=== PATIENT | male | born 1960 | race Caucasian/White ===

== ENCOUNTER 2024-02-16 15:26 | Outpatient (AMB) | payer OTHER, SELFPAY ==
[2024-02-16 15:54] VITALS: BP 142/100; PULSE 74; O2SAT 97; BMI 34.7
--- NOTE | 2024-02-16 15:54 | MHC.PC.OV ---
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 [facility] Bilingual Receptionist Required: No Accompanied by: Self / Same As Patient Allergies Penicillins Allergy (Intermediate, Verified 02/16/24 16:39) Rash Medication List - Last Reconciled 02/16/24 by Isaak Marrero MD cholecalciferol (vitamin D3) 50 mcg PO DAILY fluticasone propionate 50 mcg/actuation 1 spray intranasal DAILY mecobalamin (vitamin B12) 1,000 mcg PO DAILY naltrexone 50 mg PO DAILY sertraline 50 mg PO DAILY Tobacco use date assessed: 02/16/24 Dental Screening Dental Screen Date: 02/16/24 Did you have a dental visit in the last 12 months?: Yes Did you have a dental problem in the last 6 months where you did not have access to dental care?: No Was dental information given to patient?: Patient has dentist 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 HPI Details Patient comes in today for his annual physical examination and to establish care - is a new patient to the practice States that he quit drinking and using drugs 2 years ago, with the help of a program at [facility] in [place] that is supposedly for people with ADHD (?) States that he is currently on disability due to his lumbar DDD and also from mental health issues - states that he has been seeing a therapist a couple of times a week for a while now He is currently on Sertraline but is reportedly being switched out to some other unrecalled med by his psychiatric prescriber Recalls that he was also started on Bupropion in conjunction with his Naltrexone a while ago but it did not help him at all Relates that he keeps himself busy and involved in a lot of programs and activities like dragonboat racing/rowing, qi gong, yoga and other programs for strength training and cardio exercises to help cope with his depression He feels depressed partly due to his situation with his daughter - states that he has no relationship with his daughter and it has been over 4 yrs now since he last had a conversation with her States that this is mostly her choice and that he has to learn to live with this - he has reportedly been to anger management twice now States that he has gained a lot of weight recently - thinks that this is mostly from eating a lot since he quit drinking and using drugs - states that he generally eats healthy and that his problem is more of portion control and he is currently looking for some help to cut down on his eating and to help him lose some weight States that he is currently also on 3 different eye drops for some eye condition He is currently also on Dulcolax for constipation and is on Lisinopril (unrecalled dose) for his blood pressure States that he just had his PE done at [facility] last month, and he had some labs done prior to his physical exam - was reportedly told that his labs were okay Recalls that his FBS was around 105 mg/dl but his doctor at the [facility] did not seem to be concerned about this States that he is also scheduled for his repeat colonsocopy at [facility] in a couple of weeks on 02/29/24 He currently denies any headaches or dizziness Denies any chest pains, no SOB No nausea/vomiting, no abdominal pain Still has recurrent constipation as mentioned above He denies any acute urinary symptoms [facility] Medical History (Updated 02/17/24 @ 02:03 by Isaak Marrero MD) Lumbar degenerative disc disease Vitamin D deficiency Constipation Obesity (BMI 30-39.9) Essential hypertension History of alcohol abuse Depression Surgical History H/O inguinal hernia repair Family History Father Emphysema of lung Mother Glaucoma Hypertension Borderline type 2 diabetes mellitus CHF (congestive heart failure), Onset Age: 89 Colon cancer Social History Housing: Condominium Alcohol intake: former Year quit: 2021 Comment: two years ago-on medication Patient Tobacco Use Status: Former Tobacco user Tobacco use type: Cigarette e-Cigarette/Vaping Use: Never Used service: Yes ([place] [employer]) Current occupational status: retired and disabled Cognitive needs: No Hearing needs: Yes (tinnitus/hearing loss) Vision needs: Yes (Right eye glaucoma-being treated with three eye drops) Questionnaire PHQ-9 Over the last 2 weeks, how often have you been bothered by any of the following problems? 1. Little interest or pleasure in doing things: several days 2. Feeling down, depressed, or hopeless: several days 3. Trouble falling or staying asleep, or sleeping too much: several days 4. Feeling tired or having little energy: several days 5. Poor appetite or overeating: nearly every day 6. Feeling bad about yourself - or that you are a failure or have let yourself or your family down: several days 7. Trouble concentrating on things, such as reading the newspaper or watching television: several days 8. Moving or speaking so slowly that other people could have noticed. Or the opposite - being so fidgety or restless that you have been moving around a lot more than usual: several days 9. Thoughts that you would be better off or of hurting yourself in some way: not at all Total score: 10 Depression Screening Interpretation: Positive Depression Screening Follow-up: Existing condition and In treatment Depression Screening Done: Yes 03134 - PHQ-9 Billing: Yes Source: Developed by Drs. Jeffrey Barbosa, Marisela Nova, Alcon Woo and colleagues, with an educational myrna from [employer]. Thrive Questionnaire Date Thrive assessed: 02/16/24 I am a: Patient What is your living situation today?: I have a steady place to live Within the past 12 months, did the food you bought not last and you didn't have the money to get more?: Never true Within the past 12 months, did you worry whether your food would run out before you got money to buy more?: Never true Do you have trouble paying for medicines?: No Do you have trouble getting transportation to medical appointments?: No Do you have trouble paying your heating and electricity bill?: No Do you have trouble taking care of your child, family member or friend?: No Do you have trouble with day-to-day activities such as bathing, preparing meals, shopping, managing finances, etc.?: No Are you currently unemployed and looking for a job?: No Are you interested in more education?: No Please select the resources that you would like help with: Paying for medicine and Care for elder or disabled Currently or been in a relationship where the following occur: No concerns reported THRIVE Score: 0 AUDIT C Alcohol Use Questionnaire (AUDIT-C) 1. How often do you have a drink containing alcohol?: Never 2. How many drinks containing alcohol do you have on a typical day when you are drinking?: 3 or 4 3. How often do you have six or more drinks on one occasion?: Never Total Score: 1 Score Reviewed/Action Taken: Yes VINI-7 AMB Questionnaire VINI-7 Date VINI - 7 assessed: 02/16/24 Feeling nervous, anxious, or on edge: 1 = Several days Not being able to stop or control worryin = Several days Worrying too much about different things: 1 = Several days Trouble relaxin = Several days Being so restless that it is hard to sit still: 1 = Several days Becoming easily annoyed or irritable: 1 = Several days Feeling afraid as if something awful might happen: 0 = Not at all Total VINI-7 score (0-4 normal; 5-9 mild; 10-14 moderate; 15-21 severe): 6 Source: Developed by Drs. Jeffrey Barbosa, Marisela Nova, Alcon Woo and colleagues, with an educational myrna from [employer]. VINI-7 Assessment Billing VINI-7 Assessment Tool: VINI-7 Assessment 19637 Review of Systems Const Denies chills, Denies fatigue, Denies fever(s), Denies headache(s), Denies malaise, Denies weakness and Reports weight gain Eyes Denies blurry vision, Denies change in vision, Denies irritation and Denies itchy eyes ENT Denies dysphagia, Denies dizziness, Denies otalgia, Denies headache(s), Denies nasal congestion, Denies neck pain, Denies odynophagia and Denies sore throat Card Denies chest pain, Denies rapid heart rate, Denies irregular heart rhythm, Denies palpitations and Denies dyspnea Resp Denies chest congestion, Denies cough, Denies dyspnea and Denies wheezing GI Denies abdominal pain, Denies bloating, Reports constipation, Denies dysphagia, Denies heartburn, Denies diarrhea, Denies nausea, Denies odynophagia and Denies vomiting Denies hematuria, Denies difficulty urinating, Denies dysuria, Denies urinary frequency and Denies urinary urgency Musc Reports back pain (over the lower back - chronic), Denies arthralgias, Denies joint swelling, Denies muscle weakness and Denies neck pain Skin/Breast Denies change in pigmentation, Denies lesions, Denies rash and Denies unusual bruising Neuro Denies dizziness, Denies headache(s), Denies paresthesias and Denies weakness Psych Denies anxiety and Reports depression Endo Denies fatigue and Denies palpitations Aller/Immun Denies itchy eyes and Denies wheezing Physical exam (Primary Care) Vital Signs: Last Vital Signs Pulse 74 02/16/24 15:54 BP 142/100 H 02/16/24 15:54 Pulse Ox 97 02/16/24 15:54 Oxygen Delivery Method Room Air 02/16/24 15:54 BMI result Body Mass Index 34.7 Tobacco/Smoking Status: Tobacco use Status Tobacco use date assessed 02/16/24 02/16/24 16:17 Patient Tobacco Use Status Former Tobacco user (quit 40 02/16/24 16:17 years ago) Tobacco use type Cigarette 02/16/24 16:17 e-Cigarette/Vaping Use Never Used 02/16/24 16:17 PHQ-9: PHQ-9 Score PHQ-9: Total score 10 02/16/24 16:55 Depression Screening Interpretation: Positive Depression Screening Follow-up: Existing condition and In treatment Thrive Assessment: Date of Thrive Assessment Date Thrive assessed 02/16/24 02/16/24 16:17 Currently or been in a relationship where the following occur: No concerns reported Const General: no acute distress, alert and awake Orientation/consciousness: patient oriented x3 HENMT Head: Yes normocephalic and Yes atraumatic Ears: external ears normal, TM's normal bilaterally and EAC's normal General nose exam: No nasal discharge present Face and sinus: Yes normal facial exam and Yes sinuses nontender Teeth and gingiva: dentition normal Throat: Yes posterior oropharynx normal and Yes tonsils normal (no TP congestion) Eyes Eyelids: Yes eyelids normal Conjunctivae: conjunctivae normal Pupils: Equal, round and reactive pupils present EOM: EOMs intact bilaterally Neck Neck: Yes no lymphadenopathy and Yes supple Thyroid: Thyroid normal Resp Auscultation: clear to auscultation bilaterally, no rales and no wheezes Cardio Rate: regular rate Rhythm: regular rhythm Heart sounds: no murmurs GI Palpation (GI): Soft to palpation, nontender and No hepatosplenomegaly present Auscultation: normal bowel sounds General: Yes no CVA tenderness Back/Spine/Pelvis Back: no CVA tenderness Thoracic/Lumbar Spine: lumbar spinal tenderness Skin Lesions: no lesions Rashes: no rashes Neuro General: patient oriented x3, moves all extremities, no focal motor deficits and CN's II-XI intact bilaterally Cranial nerves: Yes Equal, round and reactive pupils present Cognition (Neuro): normal cognition Gait exam (Neuro): Normal gait present Extrem General: Yes no clubbing, cyanosis or edema Assessment and Plan Assessment & Plan (1) Annual physical exam: Code(s): Z00.00 - Encounter for general adult medical examination without abnormal findings Plan: Patient states that he just had some labs done [facility] and had [facility] physical [facility] about a month ago - will try to request for copies of these sent over for review Advised that we will just order whatever other labs are necessary to complete his physical exam and evaluation today once we have received copies of his recent labs and reviewed them He is also reportedly scheduled for his repeat colonoscopy at [facility] in a couple of weeks on 02/29/24 (2) Essential hypertension: Code(s): I10 - Essential (primary) hypertension Plan: Discussed low sodium diet - goal is systolic BP of at least 120 to 130 mm or less Continue Lisinopril - patient is unable to recall his current dosage (3) Constipation: Code(s): K59.00 - Constipation, unspecified Qualifiers: Constipation type: unspecified constipation type Qualified Code(s): K59.00 - Constipation, unspecified Plan: Advised that this is likely partially due to his Naltrexone Encouraged increased oral fluids and dietary fiber Continue current stool softeners - thinks that he is on Dulcolax (4) Vitamin D deficiency: Code(s): E55.9 - Vitamin D deficiency, unspecified Plan: Continue Vitamin D3 2000 units QD (5) Lumbar degenerative disc disease: Code(s): M51.36 - Other intervertebral disc degeneration, lumbar region Plan: Patient states that he is on long-term disability because of this issue Discussed activity and weight-lifting restrictions to avoid aggravating his low back pain (6) History of alcohol abuse: Code(s): F10.11 - Alcohol abuse, in remission Plan: Continue Naltrexone 50 mg QD and Vitamin B12 1000 mcg QD (7) Depression: Code(s): F32.A - Depression, unspecified Qualifiers: Depression Type: major depressive disorder Major depression recurrence: recurrent Active/Remission status: currently active Major depression episode severity: unspecified Qualified Code(s): F33.9 - Major depressive disorder, recurrent, unspecified Plan: Continue Sertraline (patient also cannot recall his dosage) but states that he is currently being weaned off this and started on another medication by his psychiatrist Follow up with psychiatry at the [facility] as scheduled (8) Obesity (BMI 30-39.9): Code(s): E66.9 - Obesity, unspecified Plan: Discussed diet/exercise as tolerated/lose weight Have advised patient that we will try to request for copies of his recent labs and medical records for review first and any Rx to help him lose weight and curb his appetite will be appropriately prescribed once we have have a chance to review his records Coding Level of Care Code New Pt Prev Care 40-64y([id number]) Diagnoses Annual physical exam Z00.00 Essential hypertension I10 Constipation, unspecified constipation type K59.00 Constipation type: unspecified constipation type Vitamin D deficiency E55.9 Lumbar degenerative disc disease M51.36 History of alcohol abuse F10.11 Episode of recurrent major depressive disorder, unspecified depression episode severity F33.9 Depression Type: major depressive disorder Major depression recurrence: recurrent Active/Remission status: currently active Major depression episode severity: unspecified Obesity (BMI 30-39.9) E66.9 Additional Codes VINI-7 Assessment Billing - VINI-7 Assessment Tool: VINI-7 Assessment 31201 ([id number])
== END 2024-02-16 17:01 | disposition home or self-care (01) ==
PROVIDERS: PCP Internal Medicine; Visit Provider Internal Medicine
DX: Z00.00 Encounter for general adult medical examination without abnormal findings (principal); I10 Essential (primary) hypertension; K59.00 Constipation, unspecified; F33.9 Major depressive disorder, recurrent, unspecified; E55.9 Vitamin D deficiency, unspecified; M51.36 Other intervertebral disc degeneration, lumbar region; F10.11 Alcohol abuse, in remission
CPT/HCPCS: 99386

== ENCOUNTER 2024-06-28 16:04 | Outpatient (AMB) | payer OTHER, SELFPAY ==
[2024-06-28 16:10] VITALS: BP 132/84; PULSE 66; O2SAT 95; BMI 36.5
--- NOTE | 2024-06-28 16:10 | A.OFFPC_ITS ---
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 Accompanied by: Self / Same As Patient Allergies Penicillins Allergy (Intermediate, Verified 06/28/24 16:34) Rash Medication List - Last Reconciled 06/28/24 by Isaak Marrero MD bisacodyl (Laxative (bisacodyl)) 5 mg PO BID bupropion HCl XL 150 mg PO QAM cholecalciferol (vitamin D3) 50 mcg PO DAILY clonidine HCl 0.2 mg PO BEDTIME cyanocobalamin (vitamin B-12) 500 mcg PO DAILY diclofenac sodium 1% (Arthritis Pain (diclofenac)) 2 grams topical QID docusate sodium 100 mg PO DAILY fluticasone propionate 50 mcg/actuation 2 sprays intranasal DAILY latanoprost 0.005% 1 drp ophthalmic (eye) DAILY lidocaine 4% 1 appl topical TID lidocaine 5% 1 patch topical DAILY lisinopril 5 mg PO DAILY mecobalamin (vitamin B12) 1,000 mcg PO DAILY methylphenidate HCl ER 10 mg PO QAM naltrexone 50 mg PO DAILY prazosin 1 mg PO BEDTIME propranolol 10 mg PO BID sodium chloride 0.65% (Nasal [place] (sodium chloride)) 1 spray intranasal BID PRN vortioxetine 10 mg PO DAILY zinc oxide 16% 1 appl topical BID-QID PRN Tobacco use date assessed: 06/28/24 Dental Screening Dental Screen Date: 06/28/24 Did you have a dental visit in the last 12 months?: Yes Did you have a dental problem in the last 6 months where you did not have access to dental care?: No Was dental information given to patient?: Patient has dentist HPI 4 months HPI Details Patient comes in today for his follow up visit States that he has gained a lot of weight (over 12 pounds) since his last visit Patient states that he used to weigh around 190 pounds a couple of years ago but ever since he quit drinking in March 2022, he has gained a lot of weight and currently sits at around 170 pounds - states that he has been abstinent since completing a two-week PTSD program at [facility] in [place] in March 2022 He admits to having a problem controlling his eating habits as he tends to keep eating even after he is full and is looking for help robert villeda this States that he stays active and participates regularly in physical activities everyday like yoga, strength training, cardiovascular exercises like walking, Qigong, water aerobics, and he also participates in [facility], but these efforts have not helped him at all in losing any significant amount of weight States that he has previously tried Bupropion and a higher dose of Naltrexone than what he is currently on without any success Patient states that he feels okay He denies any headaches or dizziness Denies any chest pains, no SOB No nausea/vomiting, no abdominal pain No change in bowel habits noted States that he had some labs done at the [facility] recently and will try to get a copy of those sent over to us for his file [facility] Medical History Anxiety Allergic rhinitis Lumbar degenerative disc disease Vitamin D deficiency Constipation Obesity (BMI 30-39.9) Essential hypertension History of alcohol abuse Depression Surgical History H/O inguinal hernia repair Family History Father Emphysema of lung Mother Glaucoma Hypertension Borderline type 2 diabetes mellitus CHF (congestive heart failure), Onset Age: 89 Colon cancer Social [facility] Alcohol intake: former Year quit: 2021 Comment: two years ago-on medication Patient Tobacco Use Status: Former Tobacco user Tobacco use type: Cigarette e-Cigarette/Vaping Use: Never Used service: Yes ([employer] and [employer]) Current occupational status: retired and disabled Cognitive needs: No Hearing needs: Yes (tinnitus/hearing loss) Vision needs: Yes (Right eye glaucoma-being treated with three eye drops) Questionnaire PHQ-9 Over the last 2 weeks, how often have you been bothered by any of the following problems? 1. Little interest or pleasure in doing things: several days 2. Feeling down, depressed, or hopeless: several days 3. Trouble falling or staying asleep, or sleeping too much: several days 4. Feeling tired or having little energy: several days 5. Poor appetite or overeating: nearly every day 6. Feeling bad about yourself - or that you are a failure or have let yourself or your family down: several days 7. Trouble concentrating on things, such as reading the newspaper or watching television: several days 8. Moving or speaking so slowly that other people could have noticed. Or the opposite - being so fidgety or restless that you have been moving around a lot more than usual: several days 9. Thoughts that you would be better off or of hurting yourself in some way: not at all Total score: 10 Depression Screening Interpretation: Positive Depression Screening Follow-up: Existing condition and In treatment Depression Screening Done: Yes 28563 - PHQ-9 Billing: Yes Source: Developed by Drs. Jeffrey Barbosa, Marisela Nova, Alcon Woo and colleagues, with an educational myrna from [employer]. Thrive Questionnaire Date Thrive assessed: 06/28/24 I am a: Patient What is your living situation today?: I have a steady place to live Within the past 12 months, did the food you bought not last and you didn't have the money to get more?: Never true Within the past 12 months, did you worry whether your food would run out before you got money to buy more?: Never true Do you have trouble paying for medicines?: No Do you have trouble getting transportation to medical appointments?: No Do you have trouble paying your heating and electricity bill?: No Do you have trouble taking care of your child, family member or friend?: No Do you have trouble with day-to-day activities such as bathing, preparing meals, shopping, managing finances, etc.?: No Are you currently unemployed and looking for a job?: No Are you interested in more education?: No Please select the resources that you would like help with: None Currently or been in a relationship where the following occur: No concerns reported THRIVE Score: 0 AUDIT C Alcohol Use Questionnaire (AUDIT-C) 1. How often do you have a drink containing alcohol?: Never 2. How many drinks containing alcohol do you have on a typical day when you are drinking?: 3 or 4 3. How often do you have six or more drinks on one occasion?: Never Total Score: 1 Score Reviewed/Action Taken: Yes VINI-7 AMB Questionnaire VINI-7 Date VINI - 7 assessed: 06/28/24 Feeling nervous, anxious, or on edge: 1 = Several days Not being able to stop or control worryin = Several days Worrying too much about different things: 1 = Several days Trouble relaxin = Several days Being so restless that it is hard to sit still: 1 = Several days Becoming easily annoyed or irritable: 1 = Several days Feeling afraid as if something awful might happen: 0 = Not at all Total VINI-7 score (0-4 normal; 5-9 mild; 10-14 moderate; 15-21 severe): 6 Source: Developed by Drs. Jeffrey Barbosa, Marisela Nova, Alcon Woo and colleagues, with an educational myrna from [employer]. VINI-7 Assessment Billing VINI-7 Assessment Tool: VINI-7 Assessment 68188 Review of Systems Const Denies chills, Denies fatigue, Denies fever(s), Denies headache(s) and Reports weight gain ENT Denies dysphagia, Denies dizziness, Denies otalgia, Denies headache(s), Denies neck pain, Denies odynophagia and Denies sore throat Card Denies chest pain, Denies irregular heart rhythm, Denies palpitations and Denies dyspnea Resp Denies chest congestion, Denies cough, Denies dyspnea and Denies wheezing GI Denies abdominal pain, Reports constipation, Denies dysphagia, Denies heartburn, Denies diarrhea, Denies nausea, Denies odynophagia and Denies vomiting Denies difficulty urinating, Denies dysuria and Denies urinary frequency Musc Reports back pain (over the lower back - chronic), Denies arthralgias and Denies neck pain Skin/Breast Denies rash Neuro Denies dizziness, Denies headache(s) and Denies paresthesias Psych Denies anxiety and Reports depression Endo Denies fatigue and Denies palpitations Aller/Immun Denies wheezing Physical exam (Primary Care) Vital Signs: Last Vital Signs Pulse 66 06/28/24 16:10 BP 132/84 06/28/24 16:10 Pulse Ox 95 06/28/24 16:10 Oxygen Delivery Method Room Air 06/28/24 16:10 BMI result Body Mass Index 36.5 Tobacco/Smoking Status: Tobacco use Status Tobacco use date assessed 06/28/24 06/28/24 16:12 Patient Tobacco Use Status Former Tobacco user 06/28/24 16:12 Tobacco use type Cigarette 06/28/24 16:12 e-Cigarette/Vaping Use Never Used 06/28/24 16:12 PHQ-9: PHQ-9 Score PHQ-9: Total score 10 06/29/24 02:01 Depression Screening Interpretation: Positive Depression Screening Follow-up: Existing condition and In treatment Thrive Assessment: Date of Thrive Assessment Date Thrive assessed 06/28/24 06/28/24 16:12 Currently or been in a relationship where the following occur: No concerns reported Const General: no acute distress and alert HENMT Ears: TM's normal bilaterally and EAC's normal Throat: Yes posterior oropharynx normal and Yes tonsils normal (no TP congestion) Neck Neck: Yes no lymphadenopathy and Yes supple Thyroid: Thyroid normal Resp Auscultation: clear to auscultation bilaterally, no rales and no wheezes Cardio Rate: regular rate Rhythm: regular rhythm Heart sounds: no murmurs GI Palpation (GI): Soft to palpation and nontender Auscultation: normal bowel sounds General: Yes no CVA tenderness Back/Spine/Pelvis Back: no CVA tenderness Thoracic/Lumbar Spine: lumbar spinal tenderness Skin Rashes: no rashes Extrem General: Yes no clubbing, cyanosis or edema Coding Level of Care Code Est Pt Level 4 (24110) Diagnoses Essential hypertension I10 Constipation, unspecified constipation type K59.00 Constipation type: unspecified constipation type Vitamin D deficiency E55.9 Allergic rhinitis, unspecified seasonality, unspecified trigger J30.9 Allergic rhinitis trigger: unspecified Allergic rhinitis seasonality: unspecified Degeneration of intervertebral disc of lumbar region with discogenic back pain M51.360 Disc-related pain type: discogenic back pain only Glaucoma, unspecified glaucoma type, unspecified laterality H40.9 Glaucoma type: unspecified Laterality: unspecified laterality History of alcohol abuse F10.11 Attention deficit disorder, unspecified type F98.8 Attention deficit type: unspecified type Excessive eating R63.2 Anxiety F41.9 Episode of recurrent major depressive disorder, unspecified depression episode severity F33.9 Depression Type: major depressive disorder Major depression recurrence: recurrent Active/Remission status: currently active Major depression episode severity: unspecified Obesity (BMI 30-39.9) E66.9 Additional Codes VINI-7 Assessment Billing - VINI-7 Assessment Tool: VINI-7 Assessment 88049 ([id number]) PHQ-9 - 60113 - PHQ-9 Billing: Yes ([id number]) Assessment & Plan Assessment & Plan (1) Essential hypertension: Code(s): I10 - Essential (primary) hypertension Category: Medical Plan: Reinforced low sodium diet - goal is systolic BP of at least 120 to 130 mm or less Continue Lisinopril 5 mg QD (2) Constipation: Code(s): K59.00 - Constipation, unspecified Category: Medical Qualifiers: Constipation type: unspecified constipation type Qualified Code(s): K59.00 - Constipation, unspecified Plan: Have advised patient again that this is likely partially due to his Naltrexone R x He is encouraged again on increased oral fluids and dietary fiber Continue current stool softeners - he is on Bisacodyl 5 mg BID and Docusate 100 mg QD (3) Vitamin D deficiency: Code(s): E55.9 - Vitamin D deficiency, unspecified Category: Medical Plan: Continue Vitamin D3 2000 units QD (4) Allergic rhinitis: Code(s): J30.9 - Allergic rhinitis, unspecified Category: Medical Qualifiers: Allergic rhinitis trigger: unspecified Allergic rhinitis seasonality: unspecified Qualified Code(s): J30.9 - Allergic rhinitis, unspecified Plan: Continue Fluticasone 50 mcg nasal spray QD PRN (5) Lumbar degenerative disc disease: Code(s): M51.36 - Other intervertebral disc degeneration, lumbar region Category: Medical Qualifiers: Disc-related pain type: discogenic back pain only Qualified Code(s): M51.360 - Other intervertebral disc degeneration, lumbar region with discogenic back pain only Plan: Patient states that he is on long-term disability because of this issue Reinforced activity and weight-lifting restrictions to avoid aggravating his lower back He uses Lidocaine 5% patches over his lower back QD PRN for symptomatic relief (6) Glaucoma: Code(s): H40.9 - Unspecified glaucoma Category: Medical Qualifiers: Glaucoma type: unspecified Laterality: unspecified laterality Qualified Code(s): H40.9 - Unspecified glaucoma Plan: Continue Latanoprost 0.005% 1 drop to affected eye QD Follow up with ophthalmology as scheduled (7) History of alcohol abuse: Comment: he has been abstinent since completing a two-week PTSD program at [facility] in [place] in March 2022 Code(s): F10.11 - Alcohol abuse, in remission Category: Medical Plan: Patient states that he has been abstinent since completing a two-week PTSD program at [facility] in [place] in March 2022 Continue Naltrexone 50 mg QD and Vitamin B12 1000 mcg QD (8) Attention deficit disorder: Code(s): F98.8 - Other specified behavioral and emotional disorders with onset usually occurring in childhood and adolescence Category: Medical Qualifiers: Attention deficit type: unspecified type Qualified Code(s): F98.8 - Other specified behavioral and emotional disorders with onset usually occurring in childhood and adolescence Plan: Continue Methylphenidate ER 10 mg Q AM Follow up with psychiatry as scheduled (9) Excessive eating: Code(s): R63.2 - Polyphagia Category: Medical Plan: This is likely a compensatory mechanism from his quitting smoking a couple of years ago and also partially related to his mood disorder and we can hopefully address this better both his better control of his depression as well as appropriate Rx to help curb his excessive eating habits eventually (10) Anxiety: Code(s): F41.9 - Anxiety disorder, unspecified Category: Medical Plan: Continue Propranolol 10 mg BID and Clonidine 0.2 mg Q HS [facility] ([facility]) Depression: Code(s): F32.A - Depression, unspecified Category: Medical Qualifiers: Depression Type: major depressive disorder Major depression recurrence: recurrent Active/Remission status: currently active Major depression episode severity: unspecified Qualified Code(s): F33.9 - Major depressive disorder, recurrent, unspecified Plan: Continue Vortioxetine 10 mg QD, Bupropion XL 150 mg Q AM and Prazosin 1 mg Q HS Follow up [facility] as [facility] (12) Obesity (BMI 30-39.9): Code(s): E66.9 - Obesity, unspecified Category: Medical Plan: Reinforced diet/exercise as tolerated/lose weight Have advised patient to try getting us a copy of his most recent lab results and if his labs are okay once we have a chance to review them, we can then decide on what Rx we can start him on appropriately to help him lose weight and curb his appetite Plan Follow up in 4 months
== END 2024-06-28 16:46 | disposition home or self-care (01) ==
PROVIDERS: PCP Internal Medicine; Visit Provider Internal Medicine
DX: I10 Essential (primary) hypertension (principal); F33.9 Major depressive disorder, recurrent, unspecified; E66.9 Obesity, unspecified; Z68.36 Body mass index [BMI] 36.0-36.9, adult; K59.00 Constipation, unspecified; E55.9 Vitamin D deficiency, unspecified; J30.9 Allergic rhinitis, unspecified; M51.360 Other intervertebral disc degeneration, lumbar region with discogenic back pain only; H40.9 Unspecified glaucoma; F10.11 Alcohol abuse, in remission; F98.8 Other specified behavioral and emotional disorders with onset usually occurring in childhood and adolescence; R63.2 Polyphagia

== ENCOUNTER → 2024-06-28 16:04 | Outpatient (BNVA) | payer OTHER, SELFPAY | PROVIDERS: PCP Internal Medicine; Visit Provider Internal Medicine | DX: I10 Essential (primary) hypertension (principal); K59.00 Constipation, unspecified; E55.9 Vitamin D deficiency, unspecified; J30.9 Allergic rhinitis, unspecified; M51.360 Other intervertebral disc degeneration, lumbar region with discogenic back pain only; H40.9 Unspecified glaucoma; F10.11 Alcohol abuse, in remission; F98.8 Other specified behavioral and emotional disorders with onset usually occurring in childhood and adolescence; R63.2 Polyphagia; F41.9 Anxiety disorder, unspecified; E66.9 Obesity, unspecified; F33.9 Major depressive disorder, recurrent, unspecified; Z68.36 Body mass index [BMI] 36.0-36.9, adult | CPT/HCPCS: 96127; 99212 ==

== ENCOUNTER 2024-10-08 14:19 | Outpatient (AMB) | payer OTHER, SELFPAY ==
[2024-10-08 14:21] VITALS: BP 136/82; PULSE 78; O2SAT 97; BMI 34.4
--- NOTE | 2024-10-08 14:21 | MHC.PC.OV ---
Vital Signs 10/08/24 14:21 Height 6 ft Weight 253 lb 6 oz BMI 34.4 BP 136/82 Blood Pressure Location Lt brachial Position Sitting Pulse 78 Pulse Source Pulse Oximeter Pulse Oximetry (%) 97 Oxygen Delivery Method Room Air Intake Visit Reasons: 4 months follow up Medical Claims Manager Required: No Accompanied by: Self / Same As Patient Allergies Penicillins Allergy (Intermediate, Verified 10/08/24 14:43) Rash Medication List - Last Reconciled 10/08/24 by Isaak Marrero MD bisacodyl (Laxative (bisacodyl)) 5 mg PO BID bupropion HCl XL 150 mg PO QAM cholecalciferol (vitamin D3) 50 mcg PO DAILY clonidine HCl 0.2 mg PO BEDTIME cyanocobalamin (vitamin B-12) 500 mcg PO DAILY diclofenac sodium 1% (Arthritis Pain (diclofenac)) 2 grams topical QID docusate sodium 100 mg PO DAILY fluticasone propionate 50 mcg/actuation 2 sprays intranasal DAILY latanoprost 0.005% 1 drp ophthalmic (eye) DAILY lidocaine 4% 1 appl topical TID lidocaine 5% 1 patch topical DAILY lisinopril 5 mg PO DAILY mecobalamin (vitamin B12) 1,000 mcg PO DAILY methylphenidate HCl ER 10 mg PO QAM naltrexone 50 mg PO DAILY phentermine 37.5 mg PO DAILY prazosin 1 mg PO BEDTIME propranolol 10 mg PO BID semaglutide (weight loss) (Wegovy) 0.25 mg (0.5 mL) subcut QWEEK 4 weeks sodium chloride 0.65% (Nasal Creole (sodium chloride)) 1 spray intranasal BID PRN vortioxetine 10 mg PO DAILY zinc oxide 16% 1 appl topical BID-QID PRN Tobacco use date assessed: 10/08/24 Dental Screening Dental Screen Date: 10/08/24 Did you have a dental visit in the last 12 months?: Yes Did you have a dental problem in the last 6 months where you did not have access to dental care?: No Was dental information given to patient?: Patient has dentist HPI 4 months follow up HPI Details Patient comes in today for his follow up visit States that he is happy at being able to lose over 15 pounds since he was started on oral Phentermine a few weeks ago States that he has also been undergoing hypnosis every night to help with his weight loss and has an upcoming appointment with a network technical analyst next week on 10/16/2024 for further advice and recommendations Patient states that he feels okay overall He denies any headaches or dizziness Denies any chest pains, no SOB No nausea/vomiting, no abdominal pain No change in bowel habits noted He was not able to get his follow up labs done prior to his appointment today [facility] Medical History Anxiety Allergic rhinitis Lumbar degenerative disc disease Vitamin D deficiency Constipation Obesity (BMI 30-39.9) Essential hypertension History of alcohol abuse Depression Surgical History H/O inguinal hernia repair Family History Father Emphysema of lung Mother Glaucoma Hypertension Borderline type 2 diabetes mellitus CHF (congestive heart failure), Onset Age: 89 Colon cancer Social History [facility] Alcohol intake: former Year quit: 2021 Comment: two years ago-on medication Patient Tobacco Use Status: Former Tobacco user Tobacco use type: Cigarette e-Cigarette/Vaping Use: Never 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 1. Little interest or pleasure in doing things: several days 2. Feeling down, depressed, or hopeless: several days 3. Trouble falling or staying asleep, or sleeping too much: several days 4. Feeling tired or having little energy: several days 5. Poor appetite or overeating: nearly every day 6. Feeling bad about yourself - or that you are a failure or have let yourself or your family down: several days 7. Trouble concentrating on things, such as reading the newspaper or watching television: several days 8. Moving or speaking so slowly that other people could have noticed. Or the opposite - being so fidgety or restless that you have been moving around a lot more than usual: several days 9. Thoughts that you would be better off or of hurting yourself in some way: not at all Total score: 10 Depression Screening Interpretation: Positive Depression Screening Follow-up: Existing condition and In treatment Depression Screening Done: Yes 74313 - PHQ-9 Billing: Yes Source: Developed by Drs. Jeffrey Barbosa, Marisela Nova, Alcon Woo and colleagues, with an educational myrna from [employer]. Thrive Questionnaire Date Thrive assessed: 10/08/24 I am a: Patient What is your living situation today?: I have a steady place to live Within the past 12 months, did the food you bought not last and you didn't have the money to get more?: Never true Within the past 12 months, did you worry whether your food would run out before you got money to buy more?: Never true Do you have trouble paying for medicines?: No Do you have trouble getting transportation to medical appointments?: No Do you have trouble paying your heating and electricity bill?: No Do you have trouble taking care of your child, family member or friend?: No Do you have trouble with day-to-day activities such as bathing, preparing meals, shopping, managing finances, etc.?: No Are you currently unemployed and looking for a job?: No Are you interested in more education?: No Please select the resources that you would like help with: None Currently or been in a relationship where the following occur: No concerns reported THRIVE Score: 0 AUDIT C Alcohol Use Questionnaire (AUDIT-C) 1. How often do you have a drink containing alcohol?: Never 2. How many drinks containing alcohol do you have on a typical day when you are drinking?: 3 or 4 3. How often do you have six or more drinks on one occasion?: Never Total Score: 1 Score Reviewed/Action Taken: Yes VINI-7 AMB Questionnaire VINI-7 Date VINI - 7 assessed: 10/08/24 Feeling nervous, anxious, or on edge: 1 = Several days Not being able to stop or control worryin = Several days Worrying too much about different things: 1 = Several days Trouble relaxin = Several days Being so restless that it is hard to sit still: 1 = Several days Becoming easily annoyed or irritable: 1 = Several days Feeling afraid as if something awful might happen: 0 = Not at all Total VINI-7 score (0-4 normal; 5-9 mild; 10-14 moderate; 15-21 severe): 6 Source: Developed by Drs. Jeffrey Barbosa, Marisela Nova, Alcon Woo and colleagues, with an educational myrna from [employer]. VINI-7 Assessment Billing VINI-7 Assessment Tool: VINI-7 Assessment 92464 Review of Systems Const Denies chills, Denies fatigue, Denies fever(s) and Denies headache(s) ENT Denies dysphagia, Denies dizziness, Denies otalgia, Denies headache(s), Denies neck pain, Denies odynophagia and Denies sore throat Card Denies chest pain, Denies irregular heart rhythm, Denies palpitations and Denies dyspnea Resp Denies chest congestion, Denies cough, Denies dyspnea and Denies wheezing GI Denies abdominal pain, Reports constipation, Denies dysphagia, Denies heartburn, Denies diarrhea, Denies nausea, Denies odynophagia and Denies vomiting Denies difficulty urinating, Denies dysuria and Denies urinary frequency Musc Reports back pain (over the lower back - chronic), Denies arthralgias and Denies neck pain Skin/Breast Denies rash Neuro Denies dizziness, Denies headache(s) and Denies paresthesias Psych Denies anxiety and Reports depression Endo Denies fatigue and Denies palpitations Aller/Immun Denies wheezing Physical exam (Primary Care) Vital Signs: Last Vital Signs Pulse 78 10/08/24 14:21 BP 136/82 10/08/24 14:21 Pulse Ox 97 10/08/24 14:21 Oxygen Delivery Method Room Air 10/08/24 14:21 BMI result Body Mass Index 34.4 Tobacco/Smoking Status: Tobacco use Status Tobacco use date assessed 10/08/24 10/08/24 14:23 Patient Tobacco Use Status Former Tobacco user 10/08/24 14:23 Tobacco use type Cigarette 10/08/24 14:23 e-Cigarette/Vaping Use Never Used 10/08/24 14:23 PHQ-9: PHQ-9 Score PHQ-9: Total score 10 10/08/24 14:47 Depression Screening Interpretation: Positive Depression Screening Follow-up: Existing condition and In treatment Thrive Assessment: Date of Thrive Assessment Date Thrive assessed 10/08/24 10/08/24 14:23 Currently or been in a relationship where the following occur: No concerns reported Const General: no acute distress and alert HENMT Ears: TM's normal bilaterally and EAC's normal Throat: Yes posterior oropharynx normal and Yes tonsils normal (no TP congestion) Neck Neck: Yes no lymphadenopathy and Yes supple Thyroid: Thyroid normal Resp Auscultation: clear to auscultation bilaterally, no rales and no wheezes Cardio Rate: regular rate Rhythm: regular rhythm Heart sounds: no murmurs GI Palpation (GI): Soft to palpation and nontender Auscultation: normal bowel sounds General: Yes no CVA tenderness Back/Spine/Pelvis Back: no CVA tenderness Thoracic/Lumbar Spine: lumbar spinal tenderness Skin Rashes: no rashes Extrem General: Yes no clubbing, cyanosis or edema Coding Level of Care Code Est Pt Level 4 (64651) Diagnoses Essential hypertension I10 Vitamin D deficiency E55.9 Allergic rhinitis, unspecified seasonality, unspecified trigger J30.9 Allergic rhinitis trigger: unspecified Allergic rhinitis seasonality: unspecified Constipation, unspecified constipation type K59.00 Constipation type: unspecified constipation type Degeneration of intervertebral disc of lumbar region with discogenic back pain M51.360 Disc-related pain type: discogenic back pain only Glaucoma, unspecified glaucoma type, unspecified laterality H40.9 Glaucoma type: unspecified Laterality: unspecified laterality History of alcohol abuse F10.11 Attention deficit disorder, unspecified type F98.8 Attention deficit type: unspecified type Excessive eating R63.2 Anxiety F41.9 Episode of recurrent major depressive disorder, unspecified depression episode severity F33.9 Depression Type: major depressive disorder Major depression recurrence: recurrent Active/Remission status: currently active Major depression episode severity: unspecified Obesity (BMI 30-39.9) E66.9 Additional Codes VINI-7 Assessment Billing - VINI-7 Assessment Tool: VINI-7 Assessment 81754 ([id number]) PHQ-9 - 49409 - PHQ-9 Billing: Yes ([id number]) Assessment & Plan Assessment & Plan (1) Essential hypertension: Code(s): I10 - Essential (primary) hypertension Category: Medical Plan: Reinforced low sodium diet - goal is systolic BP of at least 120 to 130 mm or less Continue Lisinopril 5 mg QD (2) Vitamin D deficiency: Code(s): E55.9 - Vitamin D deficiency, unspecified Category: Medical Plan: Continue Vitamin D3 2000 units QD (3) Allergic rhinitis: Code(s): J30.9 - Allergic rhinitis, unspecified Category: Medical Qualifiers: Allergic rhinitis trigger: unspecified Allergic rhinitis seasonality: unspecified Qualified Code(s): J30.9 - Allergic rhinitis, unspecified Plan: Continue Fluticasone 50 mcg nasal spray QD PRN (4) Constipation: Code(s): K59.00 - Constipation, unspecified Category: Medical Qualifiers: Constipation type: unspecified constipation type Qualified Code(s): K59.00 - Constipation, unspecified Plan: Have advised patient again that this is at least partially due to his Naltrexone Rx He is encouraged again on increased oral fluids and dietary fiber Continue current stool softeners - he is on Bisacodyl 5 mg BID and Docusate 100 mg QD (5) Lumbar degenerative disc disease: Code(s): M51.36 - Other intervertebral disc degeneration, lumbar region Category: Medical Qualifiers: Disc-related pain type: discogenic back pain only Qualified Code(s): M51.360 - Other intervertebral disc degeneration, lumbar region with discogenic back pain only Plan: Patient states that he is on long-term disability because of this issue Reinforced activity and weight-lifting restrictions to avoid aggravating his lower back He uses Lidocaine 5% patches over his lower back QD PRN for symptomatic relief (6) Glaucoma: Code(s): H40.9 - Unspecified glaucoma Category: Medical Qualifiers: Glaucoma type: unspecified Laterality: unspecified laterality Qualified Code(s): H40.9 - Unspecified glaucoma Plan: Continue Latanoprost 0.005% 1 drop to affected eye QD Follow up with ophthalmology as scheduled (7) History of alcohol abuse: Comment: he has been abstinent since completing a two-week PTSD program at [facility] in [place] in March 2022 Code(s): F10.11 - Alcohol abuse, in remission Category: Medical Plan: Patient states that he has been abstinent since completing a two-week PTSD program at [facility] in [place] in March 2022 Continue Naltrexone 50 mg QD and Vitamin B12 1000 mcg QD (8) Attention deficit disorder: Code(s): F98.8 - Other specified behavioral and emotional disorders with onset usually occurring in childhood and adolescence Category: Medical Qualifiers: Attention deficit type: unspecified type Qualified Code(s): F98.8 - Other specified behavioral and emotional disorders with onset usually occurring in childhood and adolescence Plan: Continue Methylphenidate ER 10 mg Q AM Follow up with psychiatry as scheduled (9) Excessive eating: Code(s): R63.2 - Polyphagia Category: Medical Plan: This is likely a compensatory mechanism from his quitting smoking a couple of years ago and also partially related to his mood disorder and we can hopefully address this better with both better control of his depression as well as the appropriate Rx (Phentermine) to help curb his excessive eating habits Patient states that he is also undergoign hypnosis every night lately to help with this issue (10) Anxiety: Code(s): F41.9 - Anxiety disorder, unspecified Category: Medical Plan: Continue Propranolol 10 mg BID and Clonidine 0.2 mg Q HS Follow up with [facility]ry at [facility] [place] as scheduled (11) Depression: Code(s): F32.A - Depression, unspecified Category: Medical Qualifiers: Depression Type: major depressive disorder Major depression recurrence: recurrent Active/Remission status: currently active Major depression episode severity: unspecified Qualified Code(s): F33.9 - Major depressive disorder, recurrent, unspecified Plan: Continue Vortioxetine 10 mg QD, Bupropion XL 150 mg Q AM and Prazosin 1 mg Q HS Follow up with his psychiatrist at the [place] as scheduled (12) Obesity (BMI 30-39.9): Code(s): E66.9 - Obesity, unspecified Category: Medical Plan: Reinforced diet/exercise as tolerated/lose weight - he has been able to lose over 15 pounds since his last visit with his current Rx Continue Phentermine 37.5 mg Q AM as instructed Patient is advised to go and get his previously ordered labs done [facility], especially with his recent weight loss Will have him recheck his labs again in 4 months for follow up, depending on how his current labs come out Plan Follow up in 4 months Orders: Orders Lipid Panel 4 Months E78.00 - Pure hypercholesterolemia, unspecified Complete Blood Count Auto Diff 4 Months D64.9 - Anemia, unspecified Comprehensive [place]. Panel Fast 4 Months E78.00 - Pure hypercholesterolemia, unspecified TSH reflex Free T4 4 Months E78.00 - Pure hypercholesterolemia, unspecified UA CC w/rflx Micro + Cult 4 Months R30.0 - Dysuria Vitamin D 25-OH Total 4 Months E55.9 - Vitamin D deficiency, unspecified
--- OUTSIDE RECORDS SUMMARY | 2024-10-08 17:08 | XMS_ITS | Clinical Summary ---
Author Organization [facility] Address [address] [place] [address] Care Team Providers Care Feather Edger Name Role Phone Pcp, No Primary Care Provider Unavailabl e Allergies No known active allergies Medications No known medications Active Problems No known active problems Social History Tobacco Use Types Packs/Day Years Used Date Smoking Tobacco: Never Assessed Sex and Gender Information Value Date Recorded Sex Assigned at Not on file Gender Identity Not on file Sexual Orientation Not on file Last Filed Vital Signs Vital Sign Reading Time Taken Comments Blood Pressure 149/98 11/04/2023 4:40 PM EDT Pulse 79 11/04/2023 4:40 PM EDT Temperature 36.7 ??C (98.1 ??F) 11/04/2023 4:40 PM ED T Respiratory Rate 16 11/04/2023 4:40 PM EDT Oxygen Saturation 97% 11/04/2023 4:40 PM EDT Inhaled Oxygen Concentration - - Weight - - Height - - Body Mass Index - - Plan of Treatment Health Maintenance Due Date Last Done Comments Hepatitis C Virus Screening 1960 HIV Screening 09/08/1975 DTaP/Tdap/Td Vaccines (1 - Tdap) 1981 Colonoscopy 09/08/2007 Pneumococcal Vaccines 50+ (1 of 1 - PCV) 2012 Zoster (Shingles) Vaccine (1 of 2) 2012 Influenza Vaccine 02/08/2024 03/23/2022, , 04/05/2019, Additional history exists COVID-19 Vaccine (2 - season) 2024 07/10/2020 RSV Vaccine 60 years and older and Patients (1 - 1-dose 75+ series) 2037 Hepatitis B Vaccines Aged Out No long er eligible based on patient's age to complete this topic Pneumococcal Vaccine: Pediatric (0-5 Years) and At-Risk Patients (6 to 49 Years) Aged Out No longer eligible based on patient's age to complete this topic Care Teams Feather Edger Relationship Specialty Start Date End Date Pcp, No PCP - General General Medicine 11/04/23
--- OUTSIDE RECORDS SUMMARY | 2024-10-08 17:08 | XMS_ITS ---
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
== END 2024-10-08 14:55 | disposition home or self-care (01) ==
LOC: HO.HMCH 14:20
PROVIDERS: PCP Internal Medicine; Visit Provider Internal Medicine
DX: I10 Essential (primary) hypertension (principal); E55.9 Vitamin D deficiency, unspecified; J30.9 Allergic rhinitis, unspecified; K59.00 Constipation, unspecified; M51.360 Other intervertebral disc degeneration, lumbar region with discogenic back pain only; H40.9 Unspecified glaucoma; F10.11 Alcohol abuse, in remission; F98.8 Other specified behavioral and emotional disorders with onset usually occurring in childhood and adolescence; R63.2 Polyphagia; F41.9 Anxiety disorder, unspecified; F33.9 Major depressive disorder, recurrent, unspecified; E66.9 Obesity, unspecified

== ENCOUNTER → 2024-10-08 14:19 | Outpatient (BNVA) | payer OTHER, SELFPAY | PROVIDERS: PCP Internal Medicine; Visit Provider Internal Medicine | DX: I10 Essential (primary) hypertension (principal); E55.9 Vitamin D deficiency, unspecified; J30.9 Allergic rhinitis, unspecified; K59.00 Constipation, unspecified; M51.360 Other intervertebral disc degeneration, lumbar region with discogenic back pain only; H40.9 Unspecified glaucoma; F10.11 Alcohol abuse, in remission; F98.8 Other specified behavioral and emotional disorders with onset usually occurring in childhood and adolescence; R63.2 Polyphagia; F41.9 Anxiety disorder, unspecified; F33.9 Major depressive disorder, recurrent, unspecified; E66.9 Obesity, unspecified | CPT/HCPCS: 96127; 99212 ==